=== PATIENT | female | born 1975 | race Caucasian/White ===

== ENCOUNTER 2017-04-27 12:19 | Emergency (ER) | payer OTHER ==
[~2017-04-27] VITALS: Ht 175.3 cm; Wt 122.5 kg
[2017-04-27] MEDS ORDERED: LEVOTHYROXINE150 MCG PO (14:23)
[2017-04-27] MEDS ORDERED: LISINOPRIL10 MG PO (14:23)
[2017-04-27] MEDS ORDERED: ONDANSETRON ODT8 MG PO (14:55)
[2017-04-27] MEDS ORDERED: OMEPRAZOLE20 MG PO (14:55)
[2017-05-03] MEDS ORDERED: IBUPROFEN200 MG PO (08:07)
== END 2017-04-27 15:09 | disposition home or self-care (01) ==
LOC: ED 12:19
DX: R06.00 Dyspnea, unspecified (principal); Z79.899 Other long term (current) drug therapy; Z88.5 Allergy status to narcotic agent
CPT/HCPCS: 36415; 80053; 81001; 83690; 84703; 85025; 99283